=== PATIENT | male | born 1950 | race Caucasian/White ===

== ENCOUNTER 2024-04-27 07:41 | Day surgery (SDC) | payer MEDICARE, OTHER ==
[~2024-04-27 07:41] MED LIST: Sodium Chloride 0.9% 10 ML Syringe FLUSH PRN; Sodium Chloride 0.9% 10 ML Syringe FLUSH SCH
[2024-04-27] MEDS ORDERED: Propofol 200 MG/20 ML SDV ONE ×3 (07:50→10:06)
[2024-04-27] MEDS ORDERED: Ondansetron 4 MG/2 ML SDV ONE (07:54)
[2024-04-27] MEDS: Lactated Ringers 1,000 ML IV SCH (08:10)
[2024-04-27] MEDS: Pregabalin 25 MG Cap PO ONE (08:40)
[2024-04-27] MEDS: Acetaminophen 325 MG Tab PO ONE (08:40)
[2024-04-27] MEDS: oxyCODONE ER 10 MG TAB.ER PO ONE (08:40)
[2024-04-27] MEDS ORDERED: ceFAZolin 2 GM Vial ONE (09:24)
[2024-04-27] MEDS ORDERED: Phenylephrine 1% 10 MG/ML SDV ONE (09:26)
[2024-04-27] MEDS ORDERED: Ropivacaine 0.5% 5 MG/ML 30 ML SDV ONE (10:24)
[2024-04-27] MEDS ORDERED: dexmedeTOMIDine HCl 200 MCG/2 ML SDV ONE (10:24)
[2024-04-27] MEDS: Morphine 8 MG, EPINEPHrine 0.3 MG, Cefuroxime 750 MG, Ketorolac 30 MG, Sodium Chloride ... PRN (10:29)
[2024-04-27] MEDS ORDERED: Ondansetron 4 MG/2 ML SDV IVPUSH PRN (10:34)
[2024-04-27] MEDS ORDERED: fentaNYL 100 MCG/2 ML SDV IVPUSH PRN (10:34)
[2024-04-27] MEDS ORDERED: HYDROmorphone 0.5 MG/0.5 ML Syringe IVPUSH PRN (10:34)
[2024-04-27] MEDS: VANCOmycin 1 GM SDV ONE (10:35)
[2024-04-27] MEDS: Tranexamic Acid 1,000 MG/10 ML Vial ONE (10:35)
[2024-04-27] MEDS: Triamcinolone Acetonide 40 MG/ML 1 ML SDV ONE (10:50)
[2024-04-27] MEDS: Bupivacaine 0.25% 10 ML SDV ONE (10:50)
[2024-04-27] MEDS: oxyCODONE 5 MG Tab PO PRN (12:32)
== END 2024-04-27 15:00 | disposition home or self-care (01) ==
LOC: JD.SDS 07:41
PROVIDERS: ATTEND Orthopaedic Surgery
DX: M17.0 Bilateral primary osteoarthritis of knee (principal); I10 Essential (primary) hypertension; I42.9 Cardiomyopathy, unspecified; Z79.899 Other long term (current) drug therapy
CPT/HCPCS: 0055T; 20610; 27447; 64447; 73560; 97116; 97161; A9270; C1713; C1776; J0171; J0665; J0690; J0697; J1885; J2272; J2371; J2405; J2704; J2795; J3301; J7120; J3490

== ENCOUNTER 2025-04-26 07:05 | Day surgery (SDC) | payer MEDICARE, OTHER ==
[~2025-04-26 07:05] MED LIST changes: +Ondansetron 4 MG/2 ML SDV ONE; +Ropivacaine 0.5% 5 MG/ML 30 ML SDV ONE; +dexmedeTOMIDine HCl 200 MCG/2 ML SDV ONE; +propofoL 500 MG/50 ML 50 ML ONE
[2025-04-26] MEDS ORDERED: Phenylephrine 1% 10 MG/ML SDV ONE (07:30)
[2025-04-26] MEDS: Lactated Ringers 1,000 ML IV SCH (07:30)
[2025-04-26] MEDS ORDERED: ePHEDrine 50 MG/ML SDV ONE (07:32)
[2025-04-26] MEDS: oxyCODONE ER 10 MG TAB.ER PO SCH (07:40)
[2025-04-26] MEDS ORDERED: Propofol 200 MG/20 ML SDV ONE (08:50)
[2025-04-26] MEDS ORDERED: Midazolam 1 MG/ML 2 ML SDV ONE (08:54)
[2025-04-26] MEDS: Morphine 8 MG, EPINEPHrine 0.3 MG, Cefuroxime 750 MG, Ketorolac 30 MG, Sodium Chloride ... PRN (09:04)
[2025-04-26] MEDS ORDERED: Ondansetron 4 MG/2 ML SDV IVPUSH PRN (09:16)
[2025-04-26] MEDS ORDERED: fentaNYL 100 MCG/2 ML SDV IVPUSH PRN (09:16)
== END 2025-04-26 11:57 | disposition home or self-care (01) ==
LOC: JD.SDS 07:05
PROVIDERS: ATTEND Orthopaedic Surgery
DX: M17.11 Unilateral primary osteoarthritis, right knee (principal); Z79.82 Long term (current) use of aspirin; Z79.899 Other long term (current) drug therapy
CPT/HCPCS: 0055T; 27447; 64447; 73560; 97116; 97161; A9270; J0169; J0690; J0697; J1885; J2250; J2272; J2371; J2405; J2704; J2795; J3373; J7120; 01402; 99100; C1713; C1776; J3490